=== PATIENT | female | born 1970 | race Caucasian/White ===

== ENCOUNTER → 2024-07-12 08:03 | Outpatient (REF) | payer OTHER, SELFPAY | LOC: HWRAD 08:03 | PROVIDERS: ATTENDING PHYSICIAN Family Medicine | DX: R19.09 Other intra-abdominal and pelvic swelling, mass and lump (principal) | CPT/HCPCS: 76830; 76856 ==

== ENCOUNTER → 2024-11-28 07:35 | Outpatient (REF) | payer OTHER, SELFPAY | LOC: PAVMRI 07:35 | PROVIDERS: ATTENDING PHYSICIAN Student in an Organized Health Care Education/Training Program; FAMILY PHYSICIAN Family Medicine | DX: D25.9 Leiomyoma of uterus, unspecified (principal) | CPT/HCPCS: 72197; A9575 ==

== ENCOUNTER 2025-05-06 05:52 | Inpatient (IN) | payer OTHER, SELFPAY ==
[2025-04-30 07:04] LABS: Hematocrit 37.8 % (37.0-47.0); Hemoglobin 12.2 g/dL (12.0-16.0); Mean Corp Hgb Conc. 32.3 g/dL (33.0-37.0); Mean Corpuscular Volume 90.2 fL (81.0-99.0); Nucleated Red Blood Cells % 0 %; Platelet Count 224 10^3/uL (130-400); Red Cell Dist. Width 14.1 % (11.5-14.5)
[2025-04-30 08:03] LABS: Blood Urea Nitrogen 13 mg/dl (7-17); Calcium 9.4 mg/dl (8.4-10.2); Carbon Dioxide 27 mmol/L (22-30); Chloride 106 mmol/L (98-107); Glucose 108 mg/dl (70-99); Potassium 5.2 mmol/L (3.5-5.1); Sodium 137 mmol/L (135-145); eGFR > 60.00
[2025-04-30 11:45] LABS: Beta HCG Quantitative < 2.39 mIU/ml
[2025-05-06] VITALS (15 sets, daily range): BP systolic 106–125; BP diastolic 54–81; BMI 29.3
[2025-05-06] MEDS: NEURONTIN 300 MG PO (06:27)
[2025-05-06] MEDS: NORMOSOL-R/PLASMALYTE-A 1000 IV ×3 (06:27→22:14)
[2025-05-06] MEDS: TYLENOL 1000 MG PO (06:27)
--- NOTE | 2025-05-06 10:27 | W.IMMPOSTOP ---
Surgical Immed Post Op Note
-
Primary Surgeon: Peffer
Assisting Surgeon: -
Pre-op Diagnosis: Ureteral identification, Bladder wall injury
Post-op Diagnosis: same
Procedure Performed: Cysto, bilateral ureteral catheters, repair of bladder wall injury
Anesthesia Type: gen
Specimen / Cultures: none
Estimated Blood Loss: 2cc
Complications: none
Operative Findings: <1cm cystotomy of midline posterior bladder wall
Ureters uninvolved
No leak after cystotomy closure
--- NOTE | 2025-05-06 11:12 | W.IMMPOSTOP ---
Surgical Immed Post Op Note
-
Primary Surgeon: Amanda Azevedo DO
Preparation Center Coordinator: WALESKA Luna
Pre-op Diagnosis: Menorrhagia, fibroid uterus , pelvic pain/pressure
Post-op Diagnosis: same, right ovarian cyst
Procedure Performed: COLEEN bilateral salpingectomy, right ovarian cystectomy (Dr. Azevedo); Cystoscopy with bilateral ureteral stent placement and repair bladder perforation ( Dr. Klein)
Anesthesia Type: general ET and TAP block Dr. Muniz
Specimen / Cultures: uterus, cervix, fibroid, bilateral fallopian tubes, right ovarian cyst
Estimated Blood Loss: 300ml
Complications: small bladder perforation-repaired
Operative Findings: Markedly enlarged fibroid uterus with 4 large fibroids ranging approx 8-10 cm distorting anatomy.
Normal appearing left ovary, right ovary with 2 small cysts (corpus luteal and benign appearing involuting cyst), normal
appearing fallopian tubes. Adhesions and thin tissue near bladder. Thinned bladder wall posteriorly noted with back-filling bladder. Bladder wall
perforation, approx 1.5-2 cm occurred here with minimal manipulation. This was repaired by Dr. Klein.
Counts correct times 2.
Stable to recovery.
[2025-05-06] MEDS: DILAUDID 0.25 MG IV ×2 (11:40→12:05)
[2025-05-06] MEDS: TORADOL 15 MG IV ×2 (12:02→17:18)
[2025-05-06 12:45] LABS: Hematocrit 35.1 % (37.0-47.0); Hemoglobin 11.5 g/dL (12.0-16.0)
[2025-05-06 13:05] LABS: Blood Urea Nitrogen 12 mg/dl (7-17); Calcium 8.1 mg/dl (8.4-10.2); Carbon Dioxide 26 mmol/L (22-30); Chloride 108 mmol/L (98-107); Estimated Creatinine Clearance 105 ml/min; Glucose 140 mg/dl (70-99); Potassium 4.5 mmol/L (3.5-5.1); Sodium 136 mmol/L (135-145); eGFR > 60.00
--- NOTE | 2025-05-06 14:24 | PTCARENOTE ---
Pt arrived 1315 from PACU. Pt AAOX3. VSS. Watson draining blood tinged urine. Midline incision approximated with glue OA. Significant other at bed side. Admision questions and head to toe assessment complete. Oriented to room and call [place]. care
ongoing.
[2025-05-06] MEDS: LOVENOX 40 MG SC (17:18)
--- NOTE | 2025-05-06 19:04 | W.PN.OBG.DWH ---
Today's Communication / Plan
-
pain mgmt
diet as josiah
OOB as josiah
Labs in am
Assessment/Plan
-
Postop check s/p COLEEN bilateral salpingectomy, repair of bladder wall.
Stable postop, hemodynamically stable.
Reviewed operative findings. Discussed bladder wall perforation and repair.
Will need indwelling Watson to go home with for 10-14 days. Will need follow up with Dr. Klein, urology.
Pain mgmt
Diet as josiah
Labs in am
Subjective Data
-
Postop check:
No complaints.
Adequate pain control.
Josiah diet.
Objective Data
-
Laboratory Results
05/06/25 12:36
05/06/25 12:36
Vital Signs
Temp Pulse Resp BP Pulse Ox
97.9 F 87 18 122/67 99
05/06/25 16:15 05/06/25 16:15 05/06/25 16:15 05/06/25 16:15 05/06/25 16:15
VSS afeb
Heart: regular rate
Pulm: normal resp rate, no increased work of breathing
Abd: soft NDNT inc cdi
ext: no calf pain
[2025-05-06] MEDS: ROXICODONE 5 MG PO (20:08)
[2025-05-06] MEDS: COLACE 100 MG PO (20:08)
[2025-05-07] MEDS: TORADOL 15 MG IV ×2 (00:20→05:38)
[2025-05-07 03:00] VITALS: BP 95/52
[2025-05-07] MEDS: SYNTHROID 175 MCG PO (05:39)
[2025-05-07] MEDS: NORMOSOL-R/PLASMALYTE-A 1000 IV (05:45)
[2025-05-07 06:49] LABS: Blood Urea Nitrogen 7 mg/dl (7-17); Carbon Dioxide 29 mmol/L (22-30); Chloride 108 mmol/L (98-107); Estimated Creatinine Clearance 92 ml/min; Potassium 4.3 mmol/L (3.5-5.1); Sodium 137 mmol/L (135-145)
[2025-05-07 07:08] LABS: Hematocrit 27.9 % (37.0-47.0); Hemoglobin 9.2 g/dL (12.0-16.0); Mean Corp Hgb Conc. 33.0 g/dL (33.0-37.0); Mean Corpuscular Volume 90.0 fL (81.0-99.0); Nucleated Red Blood Cells % 0 %; Platelet Count 204 10^3/uL (130-400); Red Cell Dist. Width 14.3 % (11.5-14.5)
--- NOTE | 2025-05-07 07:08 | W.PN.OBG.DWH ---
Today's Communication / Plan
-
teaching for carmen care
Will need leg bag and regular bag for discharge for Carmen.
OOB
PO analgesia
Erx sent to pharmacy for pain
Assessment/Plan
-
POD# 1 S/P COLEEN B/L salpingectomy repair bladder wall injury.
Doing well.
PO analgesia
Possible dc if feeling well enough today.
Will need to go home with carmen indwelling with outpt follow up with urology for cystogram and removal approx 10-14 days.
Reviewed with pt.
Reviewed postop restrictions and expectations.
Pt will see how doing today and will let RN know if feeling well enough for dc.
Subjective Data
-
POD#1 Feeling well.
Deysi diet
Adequate pain control
She wants to be sure feeling well enough to go home.
Objective Data
-
Laboratory Results
05/07/25 05:44
Vital Signs
Temp Pulse Resp BP Pulse Ox
98.6 F 83 16 95/52 98
05/07/25 03:00 05/07/25 03:00 05/07/25 03:00 05/07/25 03:00 05/07/25 03:00
VSS afeb
Gen: well- appearing, no acute distress
Cor: regular rate
Pulm: no increased work of breathing
Abd: soft NDNT Incision CDI, minor ecchymosis noted (not unexpected given surgery)
ext: no calf pain
No vaginal bleeding
urine clear
[2025-05-07 08:03] VITALS: BP 98/54
[2025-05-07] MEDS: COLACE 100 MG PO ×2 (08:04→21:45)
[2025-05-07] MEDS: TYLENOL 650 MG PO ×2 (08:08→22:02)
[2025-05-07] MEDS: ROXICODONE 5 MG PO ×2 (10:08→15:16)
--- NOTE | 2025-05-07 10:15 | CM ---
Reviewed the chart notes and spoke with the patient at the bedside. The patient resides with her spouse in a three story home with 10 steps to enter. The patient reports no DME/VN/SNF in the past. The patient confirmed her pharmacy of choice is
[facility] [address] [place]. CM continues to be available to patient/family and is monitoring medical plan for needs at discharge.
Plan: Discharge to home when medically stable.
[2025-05-07 11:31] VITALS: BP 108/58
[2025-05-07] MEDS: NORMOSOL-R/PLASMALYTE-A IV (13:06)
--- NOTE | 2025-05-07 13:26 | W.PN.URO.CBU ---
Today's Communication / Plan
-
Discharge with carmen
Cytogram and carmen removal in 10 days
Assessment / Plan
-
54F s/p hysterectomy with primary repair of small intraoperative bladder wall injury
- Maintain carmen at discharge
- Plan for cystogram in 10 days with carmen removal - order placed and instructions given
- Routine home catheter care teaching
Diagnosis
-
Date of Service: May 07, 2025
-
Patient Diagnosis:
Bladder wall injury
Post Op Day:
Subjective
-
feeling well
tolerating carmen
Objective
-
Vital Signs
Temp Pulse Resp BP Pulse Ox
98.3 F 88 16 108/58 98
05/07/25 11:31 05/07/25 11:31 05/07/25 11:31 05/07/25 11:31 05/07/25 11:31
Intake and Output
05/06/25 05/07/25 05/08/25
06:59 06:59 06:59
Intake Total 1960 / 1960 240 / 240
Output Total 2825 / 2825 900 / 900
Balance -865 / -865 -660 / -660
Intake:
Oral fluids 1560 / 1560 240 / 240
IV fluids (Total) 400 / 400
Normosol 400 / 400
Output:
Urine, Carmen 1475 / 1475 900 / 900
Urine, Voided 1350 / 1350
Laboratory Results
05/07/25 05:44
05/07/25 05:44
Physical Exam
-
General - well developed, well nourished, no acute distress
Chest - clear bilaterally
Abdomen - soft, non-tender
Carmen in place, clear urine
--- NOTE | 2025-05-07 14:49 | PN.CDI ---
CDI
- -
CDI:
Physician Documentation Request
Admit Date: 05/06/25 05:52
Dear Doctor,
Please review the following and provide your response in the progress notes.
Clinical Indicators:
Pt admitted with Menorrhagia, fibroid uterus s/p COLEEN cystectomy and bladder repair
Trended Hemoglobin/Hematocrit below /ESBL 300 ml
04/30/25 05/06/25 05/07/25
06:37 12:36 05:44
Hgb 12.2 11.5 L 9.2 L
Hct 37.8 35.1 L 27.9 L
Please provide a diagnosis for the above laboratory findings:
Acute blood loss anemia
Abnormal lab value only
Other ( please specify)
Use of terms such as suspected, likely, concern for, or probable (associated with a specific diagnosis that is being evaluated, monitored, or treated as if it exists) are acceptable and can be coded in the inpatient setting, when documented at the
time of discharge.
Thank you,
Courtney Reaves RN
CDI Specialist
[place] [facility]
Please use your independent medical judgment in providing your response.
[2025-05-07 15:00] VITALS: BP 119/70
[2025-05-07] MEDS: LOVENOX 40 MG SC (17:32)
[2025-05-07] MEDS: MORPHINE SULFATE 2 MG IV (17:51)
--- NOTE | 2025-05-07 18:01 | PTCARENOTE ---
Pt requesting alternative for severe pain. did accept morphine 2mg but would like to avoid morphine as much as possible. attending notified.
[2025-05-07] MEDS: ROXICODONE 10 MG PO (19:35)
--- NOTE | 2025-05-07 20:14 | W.PN.UPDATE ---
Update Note
Progress Note Update
Sakina's RN contacted me today to report that Sakina was still having pain today and did not feel able to go home. I was not expecting her to be able to go due to extent of surgery and anticipated recovery.
Hgb result was not back when I saw Sakina this am.
Hgb 9.2
Estimated Blood loss from surgery was estimated from fluid collected in canister including blood and bladder irrigation which totaled together approx 600ml. The amount of bladder irrigation was estimated to be approx 300ml also. It is possible value
was underestimated. She did have some acute blood loss during surgery. I suspect EBL was underestimated. The patient did not have signs of hemodynamic instability today to raise concern for active bleeding.
Will plan to recheck her cbc tomorrow.
[2025-05-07 23:14] VITALS: BP 129/75
[2025-05-08] MEDS: SYNTHROID 175 MCG PO (05:33)
[2025-05-08] MEDS: ROXICODONE 5 MG PO (05:33)
--- NOTE | 2025-05-08 06:44 | W.PN.OBG.DWH ---
Today's Communication / Plan
-
ambulate, oob,
pain meds changing to scheduled dosing
abd binder
Assessment/Plan
-
POD#2 s/p COLEEN B/l salpingectomy and bladder wall repair
auboptimal pain control
Will change med dosing from prn to scheduled
anemia from acute blood loss from surgery- no signs of ongoing bleeding.Check cbc today.
Optimize pain control
Anticipate dc tomorrow most likely
Subjective Data
-
POD#1 Feels pain control not optimal yet.
SEvere pain yesterday-felt was not ahead of the pain
no flatus yet
josiah diet
Objective Data
-
Laboratory Results
05/07/25 05:44
Vital Signs
Temp Pulse Resp BP Pulse Ox
98.5 F 99 17 129/75 95
05/07/25 23:14 05/07/25 23:14 05/07/25 23:14 05/07/25 23:14 05/07/25 23:14
VSSAfeb
aor reg
no resp rate, clear
abd: soft ND in cdi no errythema or drainage, no bruising
no vag bleeding
carmen clear urine
ext no calf pain
[2025-05-08 07:25] VITALS: BP 117/76
[2025-05-08 07:56] LABS: Hematocrit 28.3 % (37.0-47.0); Hemoglobin 9.3 g/dL (12.0-16.0); Mean Corp Hgb Conc. 32.9 g/dL (33.0-37.0); Mean Corpuscular Volume 90.7 fL (81.0-99.0); Nucleated Red Blood Cells % 0 %; Platelet Count 209 10^3/uL (130-400); Red Cell Dist. Width 14.4 % (11.5-14.5)
[2025-05-08] MEDS: MOTRIN 600 MG PO ×3 (08:05→20:13)
[2025-05-08] MEDS: COLACE 100 MG PO ×2 (08:05→20:13)
[2025-05-08] MEDS: WELLBUTRIN REGULAR RELEASE 75 MG PO (08:05)
[2025-05-08] MEDS: TYLENOL 1000 MG PO ×3 (08:05→20:13)
[2025-05-08] MEDS: ROXICODONE 10 MG PO ×2 (10:13→15:47)
--- NOTE | 2025-05-08 10:21 | CM ---
Reviewed the chart notes and spoke with the patient and family member at the bedside. Discussed possible need for VN given going home with nella. Patient declined. Family member present is a RN and will assist. CM continues to be available to
patient/family and is monitoring medical plan for needs at discharge.
Plan: Discharge to home when medically stable with no additional needs identified at this time.
[2025-05-08 15:10] VITALS: BP 105/75
[2025-05-08] MEDS: LOVENOX 40 MG SC (17:55)
[2025-05-08 23:00] VITALS: BP 105/64
[2025-05-09] MEDS: ROXICODONE 5 MG PO ×2 (00:16→10:09)
[2025-05-09] MEDS: TYLENOL 1000 MG PO ×2 (01:55→08:41)
[2025-05-09] MEDS: MOTRIN 600 MG PO ×2 (01:56→08:42)
[2025-05-09] MEDS: SYNTHROID 175 MCG PO (05:28)
--- NOTE | 2025-05-09 06:57 | W.PN.OBG.DWH ---
Today's Communication / Plan
-
d/c home today
dc with carmen
instructions on carmen care
Assessment/Plan
-
POD#3 s/p COLEEN b/l salpingectomy with repair of small bladder wall perforation
stable, recovering well
better pain mgmt
Plan dc home today
Follow up with Urology in 10 days-Dr Klein. pt aware
D/C with carmen
Reviewed dc instructions and restrictions.
Subjective Data
-
POD#2 Feeling better. Good pain control. 'yesterday was a much better day.'
Deysi diet
Flatus +
Has been ambulating
No concerns, feels ready to go home
Objective Data
-
Laboratory Results
05/08/25 07:28
05/07/25 05:44
Vital Signs
Temp Pulse Resp BP Pulse Ox
98.4 F 94 16 105/64 96
05/08/25 23:00 05/08/25 23:00 05/08/25 23:00 05/08/25 23:00 05/08/25 23:00
VSS afeb
Gen well-appearing, NAD
Cor regular rate
Pulm: no increased work of breathing
Abd: soft, +bs Inc CDI no erythema or drainage, no bruising
No vaginal bleeding
Carmen draining clear yellow urine
ext: no calf pain/no tenderness
--- NOTE | 2025-05-09 07:11 | W.DS.TRANS ---
DC Summary - Infrastructure Tech
-
Discharge Instructions:
Discharge Diagnosis/Procedures Fibroid uterus, menorrhagia; Total abdominal
hysterectomy, bilateral salpingectomy,
cystoscopy and ureteral stent placement, repair
of bladder wall perforation.
Diet Regular
Activity No strenuous activity
Driving Restrictions No driving for 2 weeks
Bathing Restrictions OK to Shower
Instructions:
Stand-Alone Forms:
Changes to Home Medications: No
Discharge Medications:
DC Medications w/original date entered in [employer]
Vitamin D3 1 cap PO DAILY Supplement 04/30/25
Held on 05/07/25. Instructions: Resume on 05/13/25.
bupropion HCl 75 mg tablet 75 mg PO DAILY Mental Health/Anxiety 04/30/25
diphenhydramine HCl 25 mg capsule (Benadryl) 25 mg PO HS PRN sleep 04/30/25
ibuprofen 200 mg tablet 600 mg PO Q6H PRN pain 04/30/25
levothyroxine 175 mcg tablet (Synthroid) 175 mcg PO DAILY Thyroid 04/30/25
[id number]-[id number]-Ca carb-vit K 18 mg iron-400 mcg-500 mg tablet 1 tab PO DAILY Supplement 04/30/25
acetaminophen 325 mg tablet 650 mg (2 x 325 mg) PO Q4HPRN PRN mild pain #0 tabs 05/07/25
oxycodone 5 mg tablet 2.5 mg (1/2 x 5 mg) PO Q4HPRN PRN moderate pain #0 tabs 05/07/25
oxycodone 5 mg tablet 5 mg PO Q4HPRN PRN severe pain when tolerating PO #14 tabs 05/07/25
Home Medication Changes
Pending Results: Yes
Total time spent discharging patient (in min): 20
[2025-05-09 07:25] VITALS: BP 115/78
[2025-05-09] MEDS: COLACE 100 MG PO (08:41)
[2025-05-09] MEDS: WELLBUTRIN REGULAR RELEASE 75 MG PO (08:42)
[2025-05-09 10:23] VITALS: BP 109/75
--- NOTE | 2025-05-09 11:08 | CM ---
Reviewed the chart notes. Patient's sister in room to transport patient home. CM continues to be available to patient/family and is monitoring medical plan for needs at discharge.
Plan: Home no needs.
== END 2025-05-09 11:20 | disposition home or self-care (01) | DRG 742 ==
LOC: 2 SOUTH 05:52
PROVIDERS: Urology; ADMITTING PHYSICIAN Obstetrics & Gynecology; FAMILY PHYSICIAN Family Medicine
PROC: 0UT90ZZ Resection of Uterus, Open Approach (ICD-10-PCS; 2025-05-06)
PROC: 0T788DZ Dilation of Bilateral Ureters with Intraluminal Device, Via Natural or Artificial Opening Endoscopic (ICD-10-PCS; 2025-05-06)
PROC: 0TQB0ZZ Repair Bladder, Open Approach (ICD-10-PCS; 2025-05-06)
PROC: 0UB00ZZ Excision of Right Ovary, Open Approach (ICD-10-PCS; 2025-05-06)
PROC: 0UT70ZZ Resection of Bilateral Fallopian Tubes, Open Approach (ICD-10-PCS; 2025-05-06)
DX: N92.0 Excessive and frequent menstruation with regular cycle (principal); D62 Acute posthemorrhagic anemia; N99.71 Accidental puncture and laceration of a genitourinary system organ or structure during a genitourinary system procedure; R18.8 Other ascites; D25.2 Subserosal leiomyoma of uterus; D25.0 Submucous leiomyoma of uterus; D25.1 Intramural leiomyoma of uterus; K57.30 Diverticulosis of large intestine without perforation or abscess without bleeding; E03.9 Hypothyroidism, unspecified; F32.A Depression, unspecified; R10.2 Pelvic and perineal pain; N83.201 Unspecified ovarian cyst, right side; N39.3 Stress incontinence (female) (male); N73.6 Female pelvic peritoneal adhesions (postinfective); Y65.8 Other specified misadventures during surgical and medical care; Y92.234 Operating room of hospital as the place of occurrence of the external cause; Z87.891 Personal history of nicotine dependence; Z82.62 Family history of osteoporosis; Z79.890 Hormone replacement therapy
CPT/HCPCS: 36415; 80048; 80051; 82565; 84520; 84702; 85014; 85018; 85025; 86850; 86900; 86901; 88304; 88305; 88307; 93005; A4300

== ENCOUNTER → 2025-05-16 12:30 | Outpatient (REF) | payer OTHER, SELFPAY | LOC: RAD 12:30 | PROVIDERS: ATTENDING PHYSICIAN Urology; FAMILY PHYSICIAN Family Medicine | DX: N99.72 Accidental puncture and laceration of a genitourinary system organ or structure during other procedure (principal) | CPT/HCPCS: 51600; 74430; Q9967 ==

== ENCOUNTER → 2025-07-08 10:18 | Outpatient (REF) | payer OTHER, SELFPAY | LOC: HWRAD 10:18 | PROVIDERS: ATTENDING PHYSICIAN Family Medicine | DX: E04.1 Nontoxic single thyroid nodule (principal); M54.50 Low back pain, unspecified | CPT/HCPCS: 72110; 76536 ==